=== PATIENT | female | born 1995 | race Caucasian/White ===

== ENCOUNTER 2017-01-19 12:16 | Emergency (ER) | payer SELFPAY ==
[2017-01-19] MEDS ORDERED: KETOROLAC 30 MG/1 ML SDV IM ONE (13:49)
--- NOTE | 2017-01-19 14:00 | EDPHY ---
H & P Time Seen by Provider: 01/19/17 13:01 HPI/ROS: HPI Lower back pain. 21-year-old female by private vehicle with her boyfriend. This patient reports 3 months of lower back pain described as a stiffness and tightness in her bilateral lower sacroiliac areas. No history of trauma. She reports that she has not had insurance until recently. But has been wanting to be evaluated for this pain. She denies fever. No bowel or bladder incontinence. No loss of sensation or weakness in her lower extremities. No abdominal pain. Last menstrual period was 1 month ago. No urinary complaints. She denies any radiation of the pain into her buttocks her extremities. ROS: Constitutional: No fever, no chills. No weakness. Eyes: No discharge. No changes in vision. ENT: No sore throat. No nasal congestion or rhinorrhea. Respiratory: No cough. No shortness of breath. Cardiac: No chest pain, no palpitations. Gastrointestinal: No abdominal pain, no vomiting, no diarrhea. Genitourinary: No hematuria. No dysuria or increased frequency with urination. Musculoskeletal: As above. No neck pain. No myalgias or arthralgias. Skin: No rashes. Neurological: No headache. No focal weakness or altered sensation. Past medical history: Bilateral knee surgery. Social history: Student at [employer]. Here with her boyfriend. Nonsmoker. Physical Exam: General Appearance: Alert, no distress. This patient is responding to questions appropriately and in full sentences. This patient appears well- hydrated and well-nourished. Eyes: Pupils equal and round no pallor or injection. No lid edema, erythema or injection. Back exam: No significant midline cervical, thoracic, sacral tenderness on palpation. She has mild and vague tenderness on palpation of the bilateral sacroiliac joints. No associated soft tissue changes, no ecchymosis, no erythema , no warmth or swelling. She has a negative same side and cross side straight leg raise test. She is neurologically intact in all myotomes in dermatomes of the bilateral lower extremities. Gastrointestinal: Abdomen is soft and nontender, no masses, bowel sounds normal. No focal tenderness at McBurney's point. No Edwards sign. Neurological: Motor sensory function is grossly intact. Cranial nerves are normal. Gait is normal. Skin: Warm and dry, no rashes. Musculoskeletal: Neck is supple and nontender. Extremities are symmetrical. All joints range without pain or impingement. Psychiatric: No agitation. No depression. Database: EKG: Imaging: LS spine x-ray series: Negative for fracture, subluxation, dislocation. Interpreted by me. Procedures: Emergency department course: After my evaluation she was sent for x-rays of the lumbar sacral spine. Ongoing lower back pain without trauma for the last 3 months. This was to evaluate for possible spondylolisthesis versus other non acute bony abnormality. She has no contraindications to NSAIDs and no history of kidney problems. She was given 60 mg of IM Toradol for pain. Urinalysis shows a few red blood cells and trace leukocyte esterase. The patient does not have a fever. No urinary complaints. The pain is not unilateral. There has been no change in pain over the last 3 months. I do not feel antibiotics are indicated for urinary tract infection at this time. The urine will be cultured. 2:20 p.m., patient re-evaluated. She is up and ambulatory without difficulty. Results of her LS spine x-ray series were discussed with her. I will have her follow up with spine [facility] and Dr. Ojeda for re-evaluation and further management. She is in agreement with this plan. I will prescribe a short course of Flexeril as well. Return to emergency department precautions reviewed. All of her questions were answered. She was discharged in good condition. Differential Diagnosis: The differential diagnosis on this patient includes but is not limited to sacroiliac strain. AAA, spinal cord compression syndrome, fracture, subluxation , dislocation, epidural abscess, pyelonephritis/urinary tract infection unlikely. This represents a partial list of diagnoses considered. These considerations are based on history, physical exam, past history, reassessment and diagnostic testing. Smoking Status: Never smoked Constitutional: Initial Vital Signs Temperature (C) 36.3 C 01/19/17 12:18 Heart Rate 80 01/19/17 12:18 Respiratory Rate 14 01/19/17 12:18 Blood Pressure 128/90 H 01/19/17 12:18 O2 Sat (%) 96 01/19/17 12:18 O2 Delivery Mode Room Air Allergies/Adverse Reactions: No Known Allergies Allergy (Unverified 01/19/17 12:19) Home Medications: Medication Instructions Recorded Cyclobenzaprine [Flexeril 10 MG 10 mg PO TID #9 tab 01/19/17 (*)] Medical Decision Making - Data Points Laboratory Results: 01/19/17 01/19/17 13:35 13:35 Urine Color YELLOW Urine Appearance HAZY Urine pH 6.0 (5.0-7.5) Ur Specific [place] 1.023 (1.002-1.030) Urine Protein NEGATIVE (NEGATIVE) Urine Ketones TRACE H (NEGATIVE) Urine Blood NEGATIVE (NEGATIVE) Urine Nitrate NEGATIVE (NEGATIVE) Urine Bilirubin NEGATIVE (NEGATIVE) Urine Urobilinogen NEGATIVE EU EU (0.2-1.0) Ur Leukocyte Esterase TRACE H (NEGATIVE) Urine RBC 5-10 /hpf H /hpf (0-3) Urine WBC 1-3 /hpf /hpf (0-3) Ur Epithelial Cells TRACE /lpf /lpf (NONE-1+) Urine Bacteria TRACE /hpf H /hpf (NONE SEEN) Urine Mucus TRACE /lpf /lpf (NONE-1+) Ur Culture Indicated? INDICATED H (NI) Urine Glucose NEGATIVE (NEGATIVE) Urine Test NEGATIVE Medications Given: Discontinued Medications Ketorolac Tromethamine (Toradol) 60 mg IM EDNOW ONE Stop: 01/19/17 13:50 Last Admin: 01/19/17 13:55 Dose: 60 mg Departure - Departure Disposition: Home, Routine, Self-Care Clinical Impression: Lower back pain Condition: Good Instructions: Back Pain (ED) Additional Instructions: Read and follow provided instructions. Follow-up with Dr. Ojeda with [facility] later this week for re-evaluation call for appointment this afternoon. Explained this is for an emergency department follow-up. Ibuprofen dosin mg every 6 hours with meals for the next 3 days only. Do not take until tomorrow morning. Take Flexeril as prescribed. May make you drowsy. Do not drive on this medication. Return to the emergency department for worsening pain, fever, vomiting, weakness or loss of sensation in her lower extremities, bowel or bladder incontinence or other serious concerns. Referrals: [facility] [Outside] - As per Instructions Prescriptions: Cyclobenzaprine [Flexeril 10 MG (*)] 10 mg PO TID #9 tab
[2017-01-19 14:10] LABS: COLOR YELLOW; LEUKOCYTE ESTERASE,URINE TRACE (NEGATIVE); NITRITE,URINE NEGATIVE (NEGATIVE)
[2017-01-19 14:14] LABS: BACTERIA TRACE /hpf (NONE SEEN); MUCUS TRACE /lpf (NONE-1+)
[2017-01-19 14:35] VITALS: BP 129/72; PULSE 72; RESP 16; TEMP 98.1; O2SAT 95
== END 2017-01-19 14:34 | disposition home or self-care (01) ==
DX: M54.5 Low back pain (principal)
CPT/HCPCS: J1885

== ENCOUNTER 2019-01-03 14:46 | Emergency (ER) | payer MEDICAID, OTHER ==
--- NOTE | 2019-01-03 15:39 | EDPHY ---
H & P Time Seen by Provider: 01/03/19 15:21 HPI/ROS: HPI Right arm swelling and weakness. 23-year-old female by private vehicle with her boyfriend. This patient reports that since this morning she has noticed a sensation of swelling diffusely in her right upper extremity. 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 She reports that she has had a sensation of swelling in this right upper extremity in the past but not to this extent. She reports that she does have chronic neck pain. There is no history of acute cervical injury or other traumatic event. ROS: Constitutional: No fever, no chills. No weakness. Eyes: No discharge. No changes in vision. Musculoskeletal: No back pain. As above. Skin: No rashes. Neurological: No headache. As above. Past medical history: Herniated L5 disc, chronic pain issues from musculoskeletal problems, knee surgery. Social history: Nonsmoker. No alcohol. Here for boyfriend. Physical Exam: General Appearance: Alert, no distress. This patient is responding to questions appropriately and in full sentences. This patient appears well- hydrated and well-nourished. Eyes: Pupils equal and round no pallor or injection. No lid edema, erythema or injection. Head: Normocephalic atraumatic. Right upper extremity exam: She has perhaps some mild and vague swelling which is asymmetric in comparison to the left upper extremity. No discoloration no erythema, no warmth, no focal edema. She has 4/5 dining room coordinator strength in comparison to 5/5 for the left upper extremity. Her sensation is intact in all dermatomes of the right upper extremity. Neurological: Motor sensory function is grossly intact. Cranial nerves are normal. Gait is normal. Skin: Warm and dry, no rashes. Musculoskeletal: Neck is supple with mild and vague midline tenderness on palpation from C3 through C7. As well as associated bilateral paraspinal tenderness involving this area. No soft tissue changes. Extremities are symmetrical. All joints range without pain or impingement. Psychiatric: No agitation. No depression. Database: EKG: Imaging: Right upper extremity ultrasound evaluate for DVT: Negative. Results were discussed with staff radiologist Dr. Jerome Ashraf. Cervical spine MRI without contrast: Negative. No evidence of MS or other pathology. Results were discussed with staff radiologist Dr. Bryce Garcia. Procedures: Emergency department course: Triage vital signs reviewed. She is mildly hypertensive. Vital signs are otherwise normal. Patient's presentation is vague, of concern is possible DVT of the right upper extremity verses a cervical radiculopathy. MRI of the cervical spine and right upper extremity ultrasound will be obtained to evaluate these potential problems. The patient consents to workup. 4:45 p.m., the patient was re-evaluated, resting comfortably at this time. Family is in the room. Results of her diagnostic studies discussed with her and her family. Repeat neurologic Assessment is normal. I feel she is safe for discharge at this time. I do not appreciate any significant asymmetric swelling of her right upper extremity in comparison to her left upper extremity. Her motor strength is symmetrical. I discussed follow-up with her primary care physician for re-evaluation in 2-3 days. Return to emergency department precautions were reviewed with her thoroughly. All of her questions were answered. She was discharged from the emergency department in good condition with her boyfriend and family. Differential Diagnosis: The differential diagnosis on this patient includes but is not limited to transient right upper extremity swelling and weakness. MS, right upper extremity DVT, epidural compression syndrome, brachial plexus injury, cervical radiculopathy unlikely. This represents a partial list of diagnoses considered. These considerations are based on history, physical exam, past history, reassessment and diagnostic testing. Smoking Status: Current some day smoker Constitutional: Initial Vital Signs Temperature (C) 37 C 01/03/19 14:52 Heart Rate 82 01/03/19 14:52 Respiratory Rate 16 01/03/19 14:52 Blood Pressure 138/69 H 01/03/19 14:52 O2 Sat (%) 95 01/03/19 14:52 O2 Delivery Mode Room Air Allergies/Adverse Reactions: No Known Allergies Allergy (Unverified 01/03/19 14:51) Home Medications: Medication Instructions Recorded Levothyroxine 01/03/19 buPROPion 01/03/19 Medical Decision Making - Diagnostics Imaging Results: Imaging Impressions Extremity Venous Study 01/03/19 15:28 Impression: No evidence of DVT. Findings discussed with Hannah Stanton MD 01/03/2019 at 16:14. Departure - Departure Disposition: Home, Routine, Self-Care Clinical Impression: Right arm weakness, Transient weakness of right arm Condition: Good Instructions: Weakness (ED) Additional Instructions: Read and follow provided instructions. Follow-up with your primary care physician in 2-3 days for re-evaluation as discussed. Return to the emergency department for worsening symptoms, neck pain, loss of sensation or weakness in your right upper extremity, or other serious concerns. Referrals: [facility] [Other] - As per Instructions
[2019-01-03 16:41] VITALS: BP 124/84
[2019-01-03] MEDS ORDERED: IBUPROFEN 600 MG TAB PO ONE ×2 (17:03→17:04)
== END 2019-01-03 17:06 | disposition home or self-care (01) ==
DX: R53.1 Weakness (principal); R20.2 Paresthesia of skin

== ENCOUNTER → 2019-03-01 | Outpatient (CLI) | payer MEDICAID | LOC: FIMAGING 13:33 | PROVIDERS: ATTEND Psychiatry & Neurology Neurology | DX: R20.2 Paresthesia of skin (principal); M54.5 Low back pain ==